=== PATIENT | female | born 1945 | race Caucasian/White ===

== ENCOUNTER → 2020-08-15 | Outpatient (CLI) | payer OTHER | LOC: BC 08:57 | PROVIDERS: ATTEND Nurse Practitioner | DX: R92.1 Mammographic calcification found on diagnostic imaging of breast (principal) ==

== ENCOUNTER 2021-08-21 12:21 | Emergency (ER) | payer OTHER ==
[~2021-08-21] VITALS: Ht 167.6 cm; Wt 77.1 kg
[2021-08-21 12:34] VITALS: BP 148/80
[2021-08-21] MEDS ORDERED: QUETIAPINE FUMA25 MG PO (12:42)
[2021-08-21] MEDS ORDERED: DESYREL150 MG PO (12:42)
[2021-08-21] MEDS ORDERED: MEMANTINE HCL E28 MG PO (12:42)
[2021-08-21] MEDS ORDERED: TRAZODONE HCL50 MG PO (12:42)
[2021-08-21] MEDS ORDERED: LISINOPRIL5 MG PO (12:43)
[2021-08-21] MEDS ORDERED: ESCITALOPRAM OX20 MG PO (12:43)
[2021-08-21] MEDS ORDERED: PROTONIX40 M2 PO (12:43)
[2021-08-21 13:19] LABS: URINE BILIRUBIN NEGATIVE (Negative); URINE BLOOD NEGATIVE (Negative); URINE CLARITY SL CLOUDY; URINE COLOR YELLOW; URINE GLUCOSE-RANDOM* NEGATIVE (Negative); URINE KETONES NEGATIVE (Negative); URINE NITRITE-REFLEX NEGATIVE (Negative); URINE PROTEIN (DIPSTICK) NEGATIVE (Negative); URINE UROBILINOGEN 0.2 E.U./dl (0.2-1.0)
[2021-08-21 13:26] LABS: URINE LEUKOCYTES-REFLEX 3+ (Negative)
[2021-08-21] MEDS ORDERED: BACTRIM DS TAB1 EACH PO ×2 (13:32→14:19)
[2021-08-21] MEDS ORDERED: PYRIDIUM200 MG PO ×2 (13:32→14:19)
[2021-08-21 13:47] LABS: SQUAMOUS 4-10 Moderate /LPF (0-3)
[2021-08-21 13:48] LABS: URINE RBC 1-2 Rare /HPF (NONE SEEN)
[2021-08-21 13:49] LABS: MUCUS 0-3 Light strn/LPF (None Seen)
== END 2021-08-21 14:35 | disposition home or self-care (01) ==
LOC: ER 12:21
PROVIDERS: Emergency Medicine
DX: N39.0 Urinary tract infection, site not specified (principal); I10 Essential (primary) hypertension; K21.9 Gastro-esophageal reflux disease without esophagitis; F41.9 Anxiety disorder, unspecified; F32.9 Major depressive disorder, single episode, unspecified; Z79.1 Long term (current) use of non-steroidal anti-inflammatories (NSAID); Z79.891 Long term (current) use of opiate analgesic; Z79.899 Other long term (current) drug therapy

== ENCOUNTER 2022-01-03 12:38 | Emergency (ER) | payer OTHER ==
[~2022-01-03] VITALS: Ht 167.6 cm; Wt 90.7 kg
[~2022-01-03 12:38] MED LIST: BACTRIM DS TAB1 EACH PO; DESYREL150 MG PO; ESCITALOPRAM OX20 MG PO; LISINOPRIL5 MG PO; MEMANTINE HCL E28 MG PO; PROTONIX40 M2 PO; PYRIDIUM200 MG PO; QUETIAPINE FUMA25 MG PO; TRAZODONE HCL50 MG PO
[2022-01-03 12:39] VITALS: BP 142/79
[2022-01-03 14:18] LABS: BASOPHILS 0.4 % (0.0-2.0); EOSINOPHILS 8.2 % (0.0-3.0); HEMATOCRIT 36.2 % (37.0-47.0); HEMOGLOBIN 12.1 gm/dL (12.0-15.0); LYMPHOCYTES 29.4 % (24.0-44.0); MCH 27.9 pg (26.0-34.0); MCHC 33.6 g/dL (28.0-37.0); MONOCYTES 9.1 % (1.0-8.0); PLATELET COUNT 236 thou/uL (150-400); POLYS 52.9 % (36.0-66.0); RBC 4.36 mil/uL (4.20-5.00); RDW 13.3 % (10.5-14.5); WBC 5.7 thou/uL (4.0-11.0)
[2022-01-03 14:31] LABS: CALCIUM 8.9 mg/dL (8.5-10.1); CREATININE 0.9 mg/dL (0.6-1.0); POTASSIUM 3.9 mmol/L (3.5-5.1)
[2022-01-03 14:40] LABS: ALBUMIN 3.4 g/dL (3.4-5.0); TOTAL BILIRUBIN 0.2 mg/dL (0.2-1.0); TOTAL PROTEIN 6.4 g/dL (6.4-8.2)
--- NOTE | 2022-01-06 07:34 | EKG ---
[address] [address] ELECTROCARDIOGRAM REPORT Name: GINGER WISEMAN [id number] Admission: 01/03/22 Attend Phys: Discharge: 01/03/22 Date of : 43 Report #: [id number] [facility] ED Test Date: 2022-01-03 Test Time: 14:33:35 Pat Name: GINGER WISEMAN Department: Room: Gender: F [employer]ing Machine Operator: : 1945 Requested By: Wilmer Matos Order Number: [id number] MD: Fitz Hidalgo Measurements Intervals [place] Rate: 74 P: 57 ME: 179 QRS: -20 QRSD: 142 T: -10 QT: 410 QTc: 455 Interpretive Statements Sinus rhythm Right bundle branch block No previous ECG available for comparison Electronically Signed On 01-06-2022 7:34:17 JINRIKISHA DRIVER by Fitz Hidalgo [email or web address] <ELECTRONICALLY SIGNED> By: Fitz Hidalgo MD, [facility] 01/06/22 0734 1433 1433 Fitz Hidalgo MD, FACC /EPI
== END 2022-01-03 15:06 | disposition home or self-care (01) ==
LOC: ER 12:38
PROVIDERS: Emergency Medicine
DX: R22.43 Localized swelling, mass and lump, lower limb, bilateral (principal); M79.661 Pain in right lower leg; M79.662 Pain in left lower leg; I10 Essential (primary) hypertension; Z79.899 Other long term (current) drug therapy; Z90.5 Acquired absence of kidney